=== PATIENT | female | born 1960 | race Caucasian/White ===

== ENCOUNTER 2021-05-25 11:37 | Emergency (ER) | payer MEDICAID ==
--- NOTE | 2021-05-25 12:19 | CR ---
[id number] RAD/RAD Wrist Right 2V EXAM: RAD Wrist Right 2V CLINICAL DATA: TRAUMA COMPARISON: No previous similar exam is available. FINDINGS: There is an impacted comminuted distal right radial diametaphyseal fracture with dorsal angulation of the distal fracture fragment IMPRESSION: COLLES' TYPE FRACTURE Sp Flores MD 05/25/21 [id number] Thank you for allowing us to participate in the care of your patient.
[2021-05-25] MEDS ORDERED: Sodium Chloride 0.9% 10 ML Syringe FLUSH PRN (12:52)
[2021-05-25] MEDS ORDERED: HYDROmorphone 0.5 MG/0.5 ML Syringe IV ONE (12:52)
[2021-05-25] MEDS ORDERED: HYDROmorphone 1 MG/ML Syringe IVPUSH ONE (13:31)
--- NOTE | 2021-05-25 14:37 | CR ---
[id number] RAD/RAD Wrist Right 2V EXAM: RAD Wrist Right 2V CLINICAL DATA: POST REDUCTION COMPARISON: CORRELATION IS MADE WITH THE EARLIER EXAM FINDINGS: There is improved alignment in the lateral projection. IMPRESSION: IMPROVED ALIGNMENT Sp Flores MD 05/25/21 [id number] Thank you for allowing us to participate in the care of your patient.
[2021-05-25] MEDS ORDERED: Take Home: Acetaminophen/oxyCODONE 325-5 MG, 5 Tab Pack ONE (15:40)
--- NOTE | 2021-05-26 08:42 | EDM.PDOC ---
ED HPI GENERAL MEDICAL PROBLEM - General Chief Complaint: Upper Extremity Injury/Pain Time Seen by Provider: 05/25/21 12:00 Source of Information: Reports: Patient History Limitations: Reports: No Limitations - History of Present Illness INITIAL COMMENTS - FREE TEXT/NARRATIVE: Pt. presents to ER with complaints of R wrist pain. She states that she fell on the ice while walking outside. Did not strike her head. She states that she fell onto an outstretched R hand. She notes acute deformity to the R wrist. Pt. denies any injury elsewhere. Denies any numbness/tingling distal to the area of injury. Onset: Today Onset Date: 05/26/21 Location: Reports: Upper Extremity, Right Right Wrist Pain Score (Numeric/FACES): 8 - Related Data Allergies Allergy/AdvReac Type Severity Reaction Status Date / Time divalproex sodium Allergy Other Verified 05/25/21 11:48 [From Depakote] contrast Allergy Other Uncoded 05/25/21 11:49 Past Medical History - Past Health History Medical/Surgical History: Denies Medical/Surgical History Social & Family History - Tobacco Use Tobacco Use Status *Q: Never Tobacco User - Recreational Drug Use Recreational Drug Use: No Review of Systems - Review of Systems Review Of Systems: Comprehensive ROS is negative, except as noted in HPI. ED EXAM, GENERAL - Physical Exam Exam: See Below Exam Limited By: No Limitations General Appearance: Alert, WD/WN, No Apparent Distress Extremities: Normal Capillary Refill, Other (obvious deformity to R wrist) Neurological: Alert, Oriented, CN II-XII Intact, Normal Cognition, Normal Gait, Normal Reflexes, No Motor/Sensory Deficits ED TRAUMA EXTREMITY PROCEDURES - Splinting Right Upper Extremity Pre-Procedure NV Status: Normal Post-Procedure NV Status: Normal Splint Material: Fiberglass Splint Design: Other (anterior/posterior splints placed to R wrist post reduction) Provider Post-Splint Application NV Check: NV Status Normal, Good Position Course - Vital Signs Last Recorded V/S: Last Vital Signs Temp 36.6 C 05/25/21 11:55 Pulse 72 05/25/21 13:45 Resp 16 05/25/21 13:45 BP 136/77 05/25/21 13:45 Pulse Ox 97 05/25/21 13:45 - Orders/Labs/Meds Orders: Active Orders 24 hr Category Date Time Status Peripheral IV Insertion Adult [OM.PC] Routine Oth 05/25/21 12:52 Ordered Meds: Medications Discontinued Medications Generic Name Dose Route Start Last Admin Trade Name Annie PRN Reason Stop Dose Admin Hydromorphone HCl 0.5 mg 05/25/21 12:52 05/25/21 13:09 Hydromorphone 0.5 Mg/0.5 Ml Syringe IV 05/25/21 12:53 0.5 mg ONETIME ONE Administration Hydromorphone HCl 0.5 mg 05/25/21 13:31 05/25/21 13:40 Hydromorphone 1 Mg/Ml Syringe IVPUSH 05/25/21 13:32 0.5 mg ONETIME ONE Administration Oxycodone/Acetaminophen Confirm 05/25/21 15:40 05/25/21 21:40 Take Home: Acetaminophen/Oxycodone 325-5 Mg, 5 Tab Pack Administered 05/25/21 15:41 Not Given Dose 2 packet .ROUTE .STK-MED ONE Sodium Chloride 10 ml 05/25/21 12:52 Sodium Chloride 0.9% 10 Ml Syringe FLUSH ASDIRECTED PRN Keep Vein Open - Radiology Interpretation Free Text/Narrative:: Colles fracture R distal radius - Re-Assessments/Exams Free Text/Narrative Re-Assessment/Exam: Pt. was given dilaudid for IV pain control. Finger trap device was used to reduce the fracture. Post reduction radiographs show improved alignment. Departure - Departure Time of Disposition: 14:30 Disposition: Home, Self-Care 01 Clinical Impression: Closed Colles' fracture - Discharge Information Referrals: Tiffanie Wallace MD [Primary Care Provider] - Forms: ED Department Discharge Sepsis Event Note (ED) - Evaluation Sepsis Screening Result: No Definite Risk - Problem List Review Problem List Initiated/Reviewed/Updated: Yes - My Orders Last 24 Hours: My Active Orders 05/25/21 12:52 Peripheral IV Insertion Adult [OM.PC] Routine - Assessment/Plan Last 24 Hours: My Active Orders 05/25/21 12:52 Peripheral IV Insertion Adult [OM.PC] Routine Plan: Pt. will be discharged. She was given oxycodone/APAP for pain control. Pt. states that discomfort is much improved post reduction. She was placed in a sling. Referral will be made with [facility].
== END 2021-05-25 14:40 | disposition home or self-care (01) ==
LOC: VM.ED 11:37
DX: S52.531A Colles' fracture of right radius, initial encounter for closed fracture (principal); Z88.8 Allergy status to other drugs, medicaments and biological substances; Z91.041 Radiographic dye allergy status; W18.30XA Fall on same level, unspecified, initial encounter; Y93.01 Activity, walking, marching and hiking
CPT/HCPCS: 25605; 73100; 96374; 96376; 99283; J1170

== ENCOUNTER 2022-03-06 13:02 | Day surgery (SDC) | payer MEDICAID ==
[~2022-03-06 13:02] MED LIST: Lactated Ringers 1,000 ML IV SCH
[2022-03-06] MEDS ORDERED: Propofol 200 MG/20 ML SDV ONE ×2 (14:10→14:35)
[2022-03-06] MEDS ORDERED: fentaNYL 100 MCG/2 ML SDV ONE (14:10)
== END 2022-03-06 15:55 | disposition home or self-care (01) ==
LOC: VM.SDS 13:02
PROVIDERS: ATTEND Family Medicine
DX: K57.30 Diverticulosis of large intestine without perforation or abscess without bleeding (principal); K31.89 Other diseases of stomach and duodenum; K29.00 Acute gastritis without bleeding; K29.80 Duodenitis without bleeding; F41.9 Anxiety disorder, unspecified; K21.9 Gastro-esophageal reflux disease without esophagitis; E03.9 Hypothyroidism, unspecified; E78.00 Pure hypercholesterolemia, unspecified; M05.841 Other rheumatoid arthritis with rheumatoid factor of right hand; C16.9 Malignant neoplasm of stomach, unspecified; J30.1 Allergic rhinitis due to pollen; R05.3 Chronic cough; Z79.890 Hormone replacement therapy; Z79.899 Other long term (current) drug therapy; Z91.041 Radiographic dye allergy status; Z88.8 Allergy status to other drugs, medicaments and biological substances; Z91.011 Allergy to milk products; Z91.018 Allergy to other foods; Z98.890 Other specified postprocedural states
CPT/HCPCS: 00813; J2704; J3010; J7120

== ENCOUNTER 2023-02-23 10:28 | Emergency (ER) | payer MEDICAID ==
[2023-02-23 10:47] LABS: APPEARANCE,URINE SLIGHTLY CLOUDY (CLEAR); BILIRUBIN,URINE NEGATIVE (NEGATIVE); COLOR,URINE ORANGE (YELLOW); GLUCOSE,URINE 100 mg/dL (NEGATIVE); KETONES,URINE NEGATIVE (NEGATIVE); LEUKOCYTE ESTERASE,URINE SMALL (NEGATIVE); NITRITE,URINE POSITIVE (NEGATIVE); OCCULT BLOOD,URINE NEGATIVE (NEGATIVE); PH,URINE 5.5 (5.0-8.0); PROTEIN,URINE NEGATIVE (NEGATIVE)
[2023-02-23 10:55] LABS: BACTERIA,URINE FEW /HPF (NOT SEEN); MUCUS,URINE OCCASIONAL /LPF (NOT SEEN); RBC,URINE 0-5 /HPF (NOT SEEN); SQUAMOUS EPITHELIAL CELLS,UR OCCASIONAL /HPF (NOT SEEN)
== END 2023-02-23 11:30 | disposition home or self-care (01) ==
LOC: VM.ED 10:28
DX: N39.0 Urinary tract infection, site not specified (principal); E03.9 Hypothyroidism, unspecified; Z91.018 Allergy to other foods; Z88.8 Allergy status to other drugs, medicaments and biological substances; Z91.041 Radiographic dye allergy status; Z79.899 Other long term (current) drug therapy
CPT/HCPCS: 81001; 87086; 99283; 99284

== ENCOUNTER 2024-08-18 13:15 | Emergency (ER) | payer MEDICAID ==
[2024-08-18 14:18] LABS: APPEARANCE,URINE TURBID (CLEAR); BILIRUBIN,URINE SMALL (NEGATIVE); COLOR,URINE RED (YELLOW); GLUCOSE,URINE NEGATIVE (NEGATIVE); KETONES,URINE NEGATIVE (NEGATIVE); LEUKOCYTE ESTERASE,URINE SMALL (NEGATIVE); NITRITE,URINE NEGATIVE (NEGATIVE); OCCULT BLOOD,URINE LARGE (NEGATIVE); PH,URINE 6.5 (5.0-8.0); PROTEIN,URINE >=300 mg/dL (NEGATIVE); UROBILINOGEN,URINE 0.2 EU/dL (0.2)
[2024-08-18 14:22] LABS: RBC,URINE >100 /HPF (NOT SEEN)
[2024-08-18 14:23] LABS: BACTERIA,URINE OCCASIONAL /HPF (NOT SEEN); MUCUS,URINE FEW /LPF (NOT SEEN); SQUAMOUS EPITHELIAL CELLS,UR OCCASIONAL /HPF (NOT SEEN); WBC,URINE 20-30 /HPF (NOT SEEN)
== END 2024-08-18 16:00 | disposition home or self-care (01) ==
LOC: VM.ED 13:15
DX: N30.01 Acute cystitis with hematuria (principal); E78.00 Pure hypercholesterolemia, unspecified; Z90.49 Acquired absence of other specified parts of digestive tract; Z79.899 Other long term (current) drug therapy; Z91.018 Allergy to other foods; Z91.011 Allergy to milk products; Z91.048 Other nonmedicinal substance allergy status
CPT/HCPCS: 74176; 81001; 87086; 99284